=== PATIENT | male | born 1965 ===

== ENCOUNTER → 2020-12-22 | Outpatient (CLI) | payer BC ==
--- NOTE | 2020-12-22 16:53 | Diagnostic Imaging Report ---
EXAM: US Thyroid CLINICAL HISTORY: NECK PAIN. RULE OUT CYST OR NODULES. COMPARISON: None TECHNIQUE: Ultrasound examination of the thyroid includes grayscale images and color doppler analysis. FINDINGS: The right lobe of the thyroid measures 4.3 x 1.2 x 2.1 cm. Echogenicity appears homogeneous. Two subcentimeter nodules are noted within the right thyroid. The first nodule composition is mixed cystic and solid. The solid components are isoechoic. It is wider than tall. Margins are well-defined and there are no echogenic foci. It measures approximately 4 x 3 mm. Overall TI-RADS score of 2. The second right thyroid nodule is located within the superior gland and measures 3 x 2 mm. It is completely cystic in composition. Borders are well-defined. There are no echogenic foci. It is wider than tall. TI-RADS score 0. The left lobe of the thyroid measures 3.7 x 1.2 x 1.5 cm. No discrete thyroid nodules identified. The isthmus appears unremarkable. 0.3 cm Vascularity appears unremarkable. IMPRESSION: SUBCENTIMETER RIGHT THYROID NODULES, HIGHEST TI-RADS SCORE of 2.
== END | disposition home or self-care (01) ==
LOC: ULS 12:00
DX: M54.2 Cervicalgia (principal); E04.1 Nontoxic single thyroid nodule
CPT/HCPCS: 76536